=== PATIENT | female | born 1960 | race Caucasian/White ===

== ENCOUNTER 2017-10-15 18:32 | Emergency (ER) | payer BC ==
[2017-10-15 18:45] VITALS: BP 118/76
[2017-10-15] MEDS ORDERED: Aspirin Low Dose CHEW TAB* 81 MG PO ONE (19:07)
--- NOTE | 2017-10-15 19:19 | UC ---
Cardiac HPI - HPI Summary HPI Summary: 57 yo female has has multiple episodes of SSCP radiating to back over the past 2 days was up with pain 3x during the night episodes last minutes to about a hour hurts to breathe during the spells feels warm and sweaty during the spells - History of Current Complaint Chief Complaint: UCGeneralIllness Stated Complaint: COUGH,CHEST,BACK PAIN Time Seen by Provider: 10/15/17 18:55 Hx Obtained From: Patient Hx Last Menstrual Period: 06/12/13 Onset/Duration: Sudden Onset, Lasting Minutes Timing: Intermittent Episodes Lasting: Initial Severity: Severe Current Severity: None Pain Intensity: 0 Chest Pain Location: Mid Sternal - wheb she has it Character: Tightness Aggravating Factor(s): Deep Breaths Alleviating Factor(s): Spontaneous Resolution Associated Signs & Symptoms: Positive: Chest Pain, Back Pain - Allergy/Home Medications Allergies/Adverse Reactions: Allergies Allergy/AdvReac Type Severity Reaction Status Date / Time No Known Allergies Allergy Verified 10/15/17 18:45 Home Medications: Home Medications Aspirin [Aspirin 81 MG TAB] 2 tab PO ONCE 10/15/17 [History Confirmed 10/15/17] PMH/Surg Hx/FS Hx/Imm Hx Previously Healthy: Yes - Surgical History Surgical History: Yes Surgery Procedure, Year, and Place: arhtroscopy on both knees. cataracts bilat - Family History Known Family History: Positive: Cardiac Disease, Hypertension - Social History Alcohol Use: Occasionally Substance Use Type: None Smoking Status (MU): Never Smoked Tobacco Have You Smoked in the Last Year: No - Immunization History Most Recent Influenza Vaccination: none Review of Systems Constitutional: Negative Skin: Negative Eyes: Negative ENT: Negative Respiratory: Shortness Of Breath Cardiovascular: Chest Pain Gastrointestinal: Negative Genitourinary: Negative Motor: Negative Neurovascular: Negative Musculoskeletal: Negative Neurological: Negative Psychological: Negative Is Patient Immunocompromised?: No All Other Systems Reviewed And Are Negative: Yes Physical Exam Triage Information Reviewed: Yes Appearance: Well-Appearing, No Pain Distress, Well-Nourished, Thin Vital Signs: Initial Vital Signs Temp 98.4 F 10/15/17 18:40 Pulse 109 10/15/17 18:40 Resp 15 10/15/17 18:40 BP 118/76 10/15/17 18:40 Pulse Ox 99 10/15/17 18:40 Vital Signs Reviewed: Yes Eyes: Positive: Conjunctiva Clear ENT: Positive: Hearing grossly normal, Uvula midline. Negative: Nasal congestion, Nasal drainage, Trismus, Muffled voice Neck: Positive: Supple, Nontender, No Lymphadenopathy Respiratory: Positive: Lungs clear, Normal breath sounds, No respiratory distress, No accessory muscle use Cardiovascular: Positive: RRR, Tachycardia Abdomen Description: Positive: Nontender, No Organomegaly, Soft Bowel Sounds: Positive: Present Musculoskeletal Exam: Normal Musculoskeletal: Positive: ROM Intact, No Edema Neurological Exam: Normal Psychological Exam: Normal Skin Exam: Normal Diagnostics - EKG Cardiac Rate: Tachycardia Cardiac Rhythm: Sinus: Normal Ectopy: None ST Segment: Normal - Assessment/Plan Course Of Treatment: given patients FH of CAD in the fifties of multiple relavities I suggested she go to the ER for evaluation. She declined EMS transfer. AMA signed. ER informed (Keyla Gutierrez NP) - Clinical Impression Provider Diagnoses: Chest pain of uncertain cause Discharge - Discharge Plan Condition: Guarded Disposition: AGAINST MEDICAL ADVICE Referrals: Yulissa Toledo PA [Primary Care Provider] -
== END 2017-10-15 19:21 | disposition left against medical advice (07) ==
LOC: UCCORT 18:32
DX: R07.89 Other chest pain (principal); M54.9 Dorsalgia, unspecified; R05 Cough; R06.02 Shortness of breath; R00.0 Tachycardia, unspecified
CPT/HCPCS: 93005; 99212; A9270-GY; G0463

== ENCOUNTER 2018-02-03 19:11 | Emergency (ER) | payer BC ==
[2018-02-03 19:30] VITALS: BP 127/78
--- NOTE | 2018-02-03 20:12 | RAD ---
INDICATION: Lateral left forearm pain times "months" TECHNIQUE: 2 views of the left forearm were obtained. FINDINGS: The bones are normal alignment. Joint spaces appear maintained. No fracture is seen. IMPRESSION: No radiographic evidence of acute fracture or dislocation. If the patient's symptoms persist, follow-up imaging is recommended.
--- NOTE | 2018-02-03 20:15 | UC ---
Elbow Pain - HPI Summary HPI Summary: 57 year old female with elbow pain . LEFT ARM PAIN FOR SEVERAL MONTHS. PT WAS DX WTIH TENNIS ELBOW, TOLD TO RETURN IF PAIN PErsisITED. PAIN PERSISTED SO PT CAME HERE. LUMP ON INNER UNDER SIDE OF WRIST ALSO. no trauma. PCP did not get xray yet. No PT or meds yet. [ End ] - History of Current Complaint Chief Complaint: UCUpperExtremity Stated Complaint: LEFT FOREARM PAIN X MONTHS Time Seen by Provider: 02/03/18 19:37 Hx Obtained From: Patient Hx Last Menstrual Period: 06/12/13 Onset/Duration: Still Present Severity Initially: Moderate Severity Currently: Moderate Pain Intensity: 5 Aggravating Factor(s): Pulling, Twisting Alleviating Factor(s): Rest - Allergies/Home Medications Allergies/Adverse Reactions: Allergies Allergy/AdvReac Type Severity Reaction Status Date / Time No Known Allergies Allergy Verified 02/03/18 19:30 PMH/Surg Hx/FS Hx/Imm Hx Previously Healthy: Yes - Surgical History Surgical History: Yes Surgery Procedure, Year, and Place: arhtroscopy on both knees. cataracts bilat - Family History Known Family History: Positive: Cardiac Disease, Hypertension - Social History Lives: With Family Alcohol Use: Occasionally Substance Use Type: None Smoking Status (MU): Never Smoked Tobacco Have You Smoked in the Last Year: No - Immunization History Most Recent Influenza Vaccination: none Review of Systems Musculoskeletal: Arthralgia, Decreased ROM Is Patient Immunocompromised?: No All Other Systems Reviewed And Are Negative: Yes Physical Exam Triage Information Reviewed: Yes Appearance: Well-Appearing, No Pain Distress, Well-Nourished Vital Signs: Initial Vital Signs Temp 98.1 F 02/03/18 19:23 Pulse 88 02/03/18 19:23 Resp 18 02/03/18 19:23 BP 127/78 02/03/18 19:23 Pulse Ox 100 02/03/18 19:23 Vital Signs Reviewed: Yes Eyes: Positive: Conjunctiva Clear ENT: Positive: Normal ENT inspection, Hearing grossly normal Musculoskeletal: Positive: Strength Intact, ROM Intact, Other: - lateral epicondyle tenderness to palpation. FROM at wrist , elbow, shoulder. no hypothenar eminence concerns. no ecchymosis. no skin changes. strength 5/5 Neurological Exam: Normal Psychological Exam: Normal Skin Exam: Normal Diagnostics - Laboratory Diagnostic Studies Completed/Ordered: IMPRESSION: No radiographic evidence of acute fracture or dislocation. per rads Elbow Pain Course/Dx - Course Course Of Treatment: topical NSAIDs, wrist splint, PT, refer to Ortho if any concerns - Differential Dx/Diagnosis Differential Diagnosis/HQI/PQRI: Sprain, Strain Provider Diagnoses: tennis elbow left side Discharge - Sign-Out/Discharge Documenting (check all that apply): Discharge - Discharge Plan Condition: Good Disposition: HOME Prescriptions: Diclofenac 1% GEL (NF) [Voltaren 1% GEL (NF)] 1 applic TOPICAL BID PRN #[id number] tube PRN Reason: Pain Patient Education Materials: Tennis Elbow (ED) Referrals: Milan BACON,Gertrudis Hummel [Primary Care Provider] - 4 Days Nazario Barfield MD [Medical Doctor] - (Ortho referral if needed ) Additional Instructions: Please consider a night time cock up wrist and physical therapy - Billing Disposition and Condition Condition: GOOD Disposition: HOME
== END 2018-02-03 20:19 | disposition home or self-care (01) ==
LOC: UCCORT 19:11
DX: M77.12 Lateral epicondylitis, left elbow (principal)
CPT/HCPCS: 99212; G0463